=== PATIENT | female | born 1965 | race Caucasian/White ===

== ENCOUNTER 2025-02-04 12:59 | Inpatient (IN) ==
[2025-02-04] MEDS: IPRATROPIUM/ALBUTEROL 3 ML AMPUL.NEB NEB ONE (13:28)
[2025-02-04] MEDS: methylPREDNISolone SOD SUCC 125 MG/2 ML VIAL IV ONE (13:28)
[2025-02-04] MEDS: LORazepam 2 MG/ML VIAL IV ONE ×2 (13:39→14:35)
[2025-02-04 13:45] LABS: Basophils # (Auto) 0.04 K/mcL (0.00-0.30); Basophils % (Auto) 0.5 % (0.0-2.0); Eosinophils % (Auto) 3.5 % (0.0-7.0); Hematocrit 42.5 % (34.1-44.9); Hemoglobin 12.5 g/dL (11.2-15.7); Lymphocytes # (Auto) 1.32 K/mcL (1.50-4.80); Lymphocytes % (Auto) 15.3 % (15.5-49.0); Mean Cell Volume 99.5 fL (80.0-100.0); Mean Corpuscular HGB Conc 29.4 g/dL (31.0-36.0); Mean Platelet Volume 10.5 fL (8.8-12.5); Monocytes % (Auto) 5.8 % (1.0-12.0); Neutrophils % (Auto) 74.3 % (38.0-78.0); Platelet Count 200 K/mcL (140-440); RBC 4.27 M/mcL (3.59-5.38); Red Cell Distribution Width 12.2 % (11.5-14.5); WBC 8.6 K/mcL (4.5-11.0)
[2025-02-04] MEDS: MAGNESIUM SULFATE 2 GM/50 ML BAG IV ONE (14:08)
[2025-02-04 14:10] LABS: proBNP < 36.0 pg/mL (<125.0)
[2025-02-04 14:14] LABS: ALT/SGPT 34 U/L (<40); AST/SGOT 16 U/L (<32); Albumin 4.3 gm/dL (3.2-5.2); Albumin/Globulin Ratio 1.3 (1.0-2.3); Alkaline Phosphatase 116 U/L (39-117); Bilirubin,Total < 0.2 mg/dL (0.1-1.0); Blood Urea Nitrogen 13 mg/dL (6-20); Calcium 9.3 mg/dL (8.6-10.4); Carbon Dioxide 32 mmol/L (22-30); Chloride 97 mmol/L (96-108); Globulin 3.2 gm/dL (2.2-3.7); Glomerular Filtration Rate 107; Glucose 355 mg/dL (70-105); Potassium 4.5 mmol/L (3.3-5.1); Sodium 142 mmol/L (133-145)
[2025-02-04] MEDS ORDERED: MAGNESIUM SULFATE 2 GM/50 ML BAG IV PRN (15:53)
[2025-02-04] MEDS ORDERED: SENNOSIDES 1 TABLET PO PRN (15:53)
[2025-02-04] MEDS ORDERED: METOCLOPRAMIDE 10 MG/2 ML VIAL IV PRN (15:53)
[2025-02-04] MEDS ORDERED: DEXTROSE 50% 50 ML VIAL IV PRN (15:53)
[2025-02-04] MEDS ORDERED: POLYETHYLENE GLYCOL 3350 17 GM PACKET PO PRN (15:53)
[2025-02-04] MEDS ORDERED: DEXTROSE 31 GM ORAL.SUSP PO PRN (15:53)
[2025-02-04] MEDS ORDERED: POTASSIUM CHLORIDE 40 MEQ in DEXTROSE 5% IN WATER 500 ML IV PRN (15:53)
[2025-02-04] MEDS ORDERED: LORazepam 2 MG/ML VIAL IV PRN (15:53)
[2025-02-04] MEDS ORDERED: POTASSIUM CHLORIDE 20 MEQ TABLET PO PRN ×2 (15:53)
[2025-02-04] MEDS ORDERED: ONDANSETRON 4 MG/2 ML VIAL IV PRN (15:53)
[2025-02-04] MEDS: AZITHROMYCIN 500 MG in DEXTROSE 5% IN WATER 250 ML IV SCH (17:02)
[2025-02-04] MEDS: INSULIN LISPRO 1 UNIT/0.01 ML UNIT SQ SCH (17:08)
[2025-02-04] MEDS: AZITHROMYCIN 500 MG in 0.9 % SODIUM CHLORIDE 250 ML IV SCH (17:10)
[2025-02-04] MEDS: IPRATROPIUM/ALBUTEROL 3 ML AMPUL.NEB NEB SCH (18:22)
[2025-02-04] MEDS: BUDESONIDE 0.5 MG/2 ML AMPUL.NEB NEB SCH (18:22)
[2025-02-04] MEDS ORDERED: hydrOXYzine 10 MG TABLET PO PRN (18:47)
[2025-02-04] MEDS ORDERED: FEXOFENADINE 180 MG TABLET PO PRN (18:47)
[2025-02-04] MEDS ORDERED: LIDOCAINE 4% TOP PATCH TOPICAL PRN (20:33)
[2025-02-04] MEDS: traZODone HCL 100 MG TABLET PO PRN (20:40)
[2025-02-04] MEDS: GABAPENTIN 100 MG CAPSULE PO SCH (20:40)
[2025-02-04] MEDS: DOCUSATE SODIUM 100 MG CAPSULE PO SCH (20:40)
[2025-02-04] MEDS: HYDROcodone/APAP 5/325MG TABLET PO PRN (20:40)
[2025-02-04] MEDS: Tacrolimus 0.1 % ointment TOPICAL SCH (20:41)
[2025-02-05 06:25] LABS: Basophils # (Auto) 0.01 K/mcL (0.00-0.30); Basophils % (Auto) 0.1 % (0.0-2.0); Eosinophils # (Auto) 0.02 K/mcL (0.00-0.70); Eosinophils % (Auto) 0.2 % (0.0-7.0); Hematocrit 36.5 % (34.1-44.9); Lymphocytes # (Auto) 1.39 K/mcL (1.50-4.80); Lymphocytes % (Auto) 14.6 % (15.5-49.0); Mean Cell Volume 98.4 fL (80.0-100.0); Mean Corpuscular HGB Conc 30.1 g/dL (31.0-36.0); Mean Platelet Volume 10.6 fL (8.8-12.5); Monocytes # (Auto) 0.58 K/mcL (0.10-0.90); Monocytes % (Auto) 6.1 % (1.0-12.0); Neutrophils % (Auto) 78.7 % (38.0-78.0); Platelet Count 176 K/mcL (140-440); RBC 3.71 M/mcL (3.59-5.38); Red Cell Distribution Width 11.9 % (11.5-14.5); WBC 9.5 K/mcL (4.5-11.0)
[2025-02-05 06:48] LABS: ALT/SGPT 27 U/L (<40); AST/SGOT 10 U/L (<32); Albumin 3.8 gm/dL (3.2-5.2); Albumin/Globulin Ratio 1.4 (1.0-2.3); Alkaline Phosphatase 84 U/L (39-117); Bilirubin,Direct < 0.2 mg/dL (0-0.3); Bilirubin,Total < 0.2 mg/dL (0.1-1.0); Blood Urea Nitrogen 16 mg/dL (6-20); Carbon Dioxide 39 mmol/L (22-30); Chloride 96 mmol/L (96-108); Globulin 2.7 gm/dL (2.2-3.7); Glomerular Filtration Rate 115; Glucose 242 mg/dL (70-105); Lactate Dehydrogenase 138 U/L (135-225); Phosphorous 3.5 mg/dL (2.5-4.5); Potassium 4.7 mmol/L (3.3-5.1); Sodium 142 mmol/L (133-145); Triglycerides 137 mg/dL (<150); Uric Acid 2.4 mg/dL (2.5-8.0)
[2025-02-05] MEDS: OMEPRAZOLE 20 MG CAPSULE PO SCH (09:02)
[2025-02-05] MEDS: acetaZOLAMIDE SOD 500 MG VIAL IV ONE (09:03)
[2025-02-05] MEDS: methylPREDNISolone SOD SUCC 125 MG/2 ML VIAL IV SCH (09:03)
[2025-02-05] MEDS: INSULIN GLARGINE, HUMAN 1 UNIT/0.01 ML SQ SCH (09:07)
[2025-02-05] MEDS: ENOXAPARIN 40 MG/0.4 ML SYRINGE SQ SCH (09:08)
[2025-02-05] MEDS: ACETAMINOPHEN 325 MG TABLET PO PRN (10:00)
[2025-02-05] MEDS: INSULIN LISPRO 1 UNIT/0.01 ML UNIT SQ SCH (11:34)
[2025-02-05] MEDS ORDERED: TRIAMCINOLONE CREAM 0.1% 15G 1 DOSE TUBE TOPICAL PRN (12:59)
[2025-02-05] MEDS: IPRATROPIUM/ALBUTEROL 3 ML AMPUL.NEB NEB PRN (20:31)
[2025-02-06 06:35] LABS: ALT/SGPT 28 U/L (<40); AST/SGOT 9 U/L (<32); Albumin 4.4 gm/dL (3.2-5.2); Albumin/Globulin Ratio 1.4 (1.0-2.3); Alkaline Phosphatase 95 U/L (39-117); Bilirubin,Direct < 0.2 mg/dL (0-0.3); Bilirubin,Total 0.2 mg/dL (0.1-1.0); Blood Urea Nitrogen 19 mg/dL (6-20); Calcium 9.6 mg/dL (8.6-10.4); Carbon Dioxide 33 mmol/L (22-30); Chloride 95 mmol/L (96-108); Globulin 3.2 gm/dL (2.2-3.7); Glomerular Filtration Rate 101; Glucose 366 mg/dL (70-105); Lactate Dehydrogenase 142 U/L (135-225); Phosphorous 4.1 mg/dL (2.5-4.5); Potassium 4.8 mmol/L (3.3-5.1); Sodium 138 mmol/L (133-145); Triglycerides 139 mg/dL (<150); Uric Acid 2.7 mg/dL (2.5-8.0)
[2025-02-06] MEDS: INSULIN GLARGINE, HUMAN 1 UNIT/0.01 ML SQ ONE (08:01)
[2025-02-06] MEDS: predniSONE 20 MG TABLET PO SCH (08:48)
[2025-02-07] MEDS: INSULIN GLARGINE, HUMAN 1 UNIT/0.01 ML SQ SCH (09:05)
[2025-02-07 11:26] VITALS: TEMP 98.1; O2SAT 95
[2025-02-08] MEDS ORDERED: predniSONE 20 MG TABLET PO SCH (08:00)
== END 2025-02-07 12:18 | disposition home or self-care (01) | DRG 190 ==
LOC: ED 12:59 → ICU 15:50 → MEDSUR 02-06 14:11
PROVIDERS: ADMIT Internal Medicine; ATTEND Internal Medicine